=== PATIENT | male | born 1975 | race African-American/Black ===

== ENCOUNTER → 2024-08-02 07:31 | Outpatient (REF) | payer BC, SELFPAY ==
[2024-08-02 08:07] LABS: % Basophils 0.5 % (0-2); % Eosinophils 3.5 % (0-6); % Immature Granulocytes 0.5 % (0-0.5); % Lymphocytes 43.2 % (20.5-51.1); % Monocytes 5.3 % (1.7-9.3); Absolute Basophils 0.1 10^3/uL (0-0.2); Absolute Eosinophils 0.3 10^3/uL (0-0.7); Absolute Immature Granulocytes 0.1 10^3/uL (0-0.05); Absolute Lymphocytes 4.2 10^3/uL (1.2-3.4); Absolute Monocytes 0.5 10^3/uL (0.1-0.6); Absolute Neutrophils 4.5 10^3/uL (1.4-6.5); Hematocrit 43.4 % (39.0-52.0); Hemoglobin 14.8 g/dL (13.0-18.0); Mean Corp Hgb Conc. 34.1 g/dL (33.0-37.0); Mean Platelet Volume 9.2 fL (7.4-10.4); Nucleated Red Blood Cells % 0 % (-); Platelet Count 249 10^3/uL (130-400); Red Blood Cell Count 5.29 10^6/uL (4.70-6.10); Red Cell Dist. Width 13.9 % (11.5-14.5); White Blood Cell Count 9.6 10^3/uL (4.8-10.8)
[2024-08-02 08:41] LABS: ALT (SGPT) 42 U/L (0-50); AST (SGOT) 28 U/L (17-59); Albumin 4.2 g/dl (3.5-5.0); Alkaline Phosphatase 62 U/L (38-126); Blood Urea Nitrogen 9 mg/dl (9-20); Calcium 8.8 mg/dl (8.4-10.2); Carbon Dioxide 24 mmol/L (22-30); Chloride 106 mmol/L (98-107); Glucose 117 mg/dl (70-99); HDL Cholesterol 32 mg/dl; LDL Cholesterol, Calculated 150 mg/dl; Potassium 4.1 mmol/L (3.5-5.1); Sodium 139 mmol/L (135-145); Total Bilirubin 0.6 mg/dl (0.2-1.3); Total Cholesterol 213 mg/dl (50-199); Total Protein 7.5 g/dl (6.3-8.2); Triglyceride 155 mg/dl (10-149); Very Low Density Lipoprotein 31 mg/dl (0-30); eGFR > 60.00
[2024-08-02 11:11] LABS: Glycohemoglobin (HgbA1c) 5.8 % (4.0-5.6)
[2024-08-03 17:46] LABS: CD4 % of Cells Analyzed 15 % (32-64); CD4 Absolute Count 686 cells/uL (430-1800)
[2024-08-03 23:42] LABS: HIV-1 Quan NAAT Interpretation Detected (Not Detected); HIV-1 Quant NAAT (copies/ml) 116 cpy/mL; HIV-1 Quant NAAT (log copy/mL) 2.06 log cpy/mL
[2024-08-04 15:07] LABS: Quantiferon Mitogen minus NIL 9.93 IU/mL; Quantiferon NIL 0.07 IU/mL; Quantiferon Plus TB1 minus NIL 0.05 IU/mL (<=0.34); Quantiferon Plus TB2 minus NIL 0.02 IU/mL (<=0.34); Quantiferon TB Gold Plus Negative (Negative)
[2024-08-04 16:24] LABS: Syphilis/T. pallidum Ab Reflex Positive (Negative)
[2024-08-04 16:58] LABS: RPR, Progressive Reactive (NonReactive)
== END ==
LOC: REG 07:31
PROVIDERS: ATTENDING PHYSICIAN Internal Medicine Infectious Disease
DX: B20 Human immunodeficiency virus [HIV] disease (principal); R73.03 Prediabetes; E78.2 Mixed hyperlipidemia
CPT/HCPCS: 36415; 80053; 80061; 83036; 85025; 86361; 86480; 86592; 86593; 86780; 87491; 87536; 87591

== ENCOUNTER 2024-08-18 13:54 | Outpatient (RCR) | payer BC, SELFPAY ==
[2024-08-18 14:36] VITALS: BP 132/96
[2024-08-18] MEDS: BICILLIN LA 1200000 UNITS IM ×2 (14:43)
== END 2024-08-21 13:53 | disposition home or self-care (01) ==
LOC: OID 13:54
PROVIDERS: ATTENDING PHYSICIAN Internal Medicine Infectious Disease
DX: A53.0 Latent syphilis, unspecified as early or late (principal)
CPT/HCPCS: 96372; J0561

== ENCOUNTER 2024-09-01 13:37 | Outpatient (RCR) | payer BC, SELFPAY ==
[2024-08-25 14:17] VITALS: BP 130/76
[2024-08-25] MEDS: BICILLIN LA 1200000 UNITS IM ×2 (14:29)
[2024-09-01 13:52] VITALS: BP 129/96
[2024-09-01] MEDS: BICILLIN LA 1200000 UNITS IM ×2 (14:28)
== END 2024-09-04 10:39 | disposition home or self-care (01) ==
LOC: OID 13:37
PROVIDERS: ATTENDING PHYSICIAN Internal Medicine Infectious Disease
DX: A53.0 Latent syphilis, unspecified as early or late (principal)
CPT/HCPCS: 96372; J0561

== ENCOUNTER → 2024-11-04 10:46 | Outpatient (REF) | payer BC, SELFPAY ==
[2024-11-04 12:20] LABS: % Basophils 0.5 % (0-2); % Eosinophils 1.9 % (0-6); % Immature Granulocytes 0.5 % (0-0.5); % Lymphocytes 47.9 % (20.5-51.1); % Monocytes 4.6 % (1.7-9.3); % Neutrophils 44.6 % (42.2-75.2); Absolute Eosinophils 0.2 10^3/uL (0-0.7); Absolute Lymphocytes 3.8 10^3/uL (1.2-3.4); Absolute Monocytes 0.4 10^3/uL (0.1-0.6); Absolute Neutrophils 3.5 10^3/uL (1.4-6.5); Hematocrit 41.7 % (39.0-52.0); Mean Corpuscular Hgb 29.6 pg (27.0-31.0); Mean Corpuscular Volume 82.2 fL (80.0-94.0); Mean Platelet Volume 9.3 fL (7.4-10.4); Nucleated Red Blood Cells % 0 % (-); Platelet Count 318 10^3/uL (130-400); Red Blood Cell Count 5.07 10^6/uL (4.70-6.10); Red Cell Dist. Width 13.3 % (11.5-14.5); White Blood Cell Count 7.9 10^3/uL (4.8-10.8)
[2024-11-04 12:44] LABS: ALT (SGPT) 72 U/L (0-50); AST (SGOT) 46 U/L (17-59); Albumin 4.5 g/dl (3.5-5.0); Alkaline Phosphatase 76 U/L (38-126); Blood Urea Nitrogen 13 mg/dl (9-20); Calcium 9.7 mg/dl (8.4-10.2); Carbon Dioxide 23 mmol/L (22-30); Chloride 100 mmol/L (98-107); Glucose 172 mg/dl (70-99); Potassium 4.3 mmol/L (3.5-5.1); Sodium 135 mmol/L (135-145); Total Bilirubin 0.9 mg/dl (0.2-1.3); Total Protein 7.6 g/dl (6.3-8.2); eGFR > 60.00
[2024-11-06 13:26] LABS: Mumps Virus IgG Positive; Rubeola (Measles) IgG Positive
[2024-11-06 17:48] LABS: CD4 % of Cells Analyzed 15 % (32-64); CD4 Absolute Count 655 cells/uL (430-1800)
[2024-11-06 18:56] LABS: Rubella Positive
[2024-11-06 20:11] LABS: CMV IgG Antibody >10.00 U/mL (<=0.70)
== END ==
LOC: REG 10:46
PROVIDERS: ATTENDING PHYSICIAN Internal Medicine Infectious Disease
DX: A53.9 Syphilis, unspecified (principal); B20 Human immunodeficiency virus [HIV] disease
CPT/HCPCS: 36415; 80053; 82955; 85025; 86361; 86644; 86735; 86762; 86765; 86780; 87536

== ENCOUNTER → 2025-01-27 08:40 | Outpatient (REF) | payer BC, SELFPAY ==
[2025-01-27 09:24] LABS: % Basophils 0.6 % (0-2); % Eosinophils 5.9 % (0-6); % Immature Granulocytes 0.2 % (0-0.5); % Lymphocytes 48.9 % (20.5-51.1); % Monocytes 4.1 % (1.7-9.3); % Neutrophils 40.3 % (42.2-75.2); Absolute Basophils 0.1 10^3/uL (0-0.2); Absolute Eosinophils 0.5 10^3/uL (0-0.7); Absolute Lymphocytes 4.1 10^3/uL (1.2-3.4); Absolute Monocytes 0.3 10^3/uL (0.1-0.6); Absolute Neutrophils 3.4 10^3/uL (1.4-6.5); Hematocrit 40.8 % (39.0-52.0); Hemoglobin 14.2 g/dL (13.0-18.0); Mean Corp Hgb Conc. 34.8 g/dL (33.0-37.0); Mean Corpuscular Hgb 28.6 pg (27.0-31.0); Mean Corpuscular Volume 82.1 fL (80.0-94.0); Mean Platelet Volume 9.5 fL (7.4-10.4); Nucleated Red Blood Cells % 0 % (-); Platelet Count 264 10^3/uL (130-400); Red Blood Cell Count 4.97 10^6/uL (4.70-6.10); Red Cell Dist. Width 12.9 % (11.5-14.5); White Blood Cell Count 8.3 10^3/uL (4.8-10.8)
[2025-01-27 09:50] LABS: ALT (SGPT) 51 U/L (0-50); AST (SGOT) 30 U/L (17-59); Albumin 4.1 g/dl (3.5-5.0); Alkaline Phosphatase 78 U/L (38-126); Blood Urea Nitrogen 6 mg/dl (9-20); Calcium 8.9 mg/dl (8.4-10.2); Carbon Dioxide 26 mmol/L (22-30); Chloride 105 mmol/L (98-107); Glucose 167 mg/dl (70-99); HDL Cholesterol 30 mg/dl; LDL Cholesterol, Calculated 79 mg/dl; Sodium 140 mmol/L (135-145); Total Bilirubin 0.6 mg/dl (0.2-1.3); Total Cholesterol 133 mg/dl (50-199); Total Protein 7.2 g/dl (6.3-8.2); Triglyceride 122 mg/dl (10-149); Very Low Density Lipoprotein 24 mg/dl (0-30); eGFR > 60.00
[2025-01-28 15:38] LABS: CD4 % of Cells Analyzed 13 % (32-64); CD4 Absolute Count 623 cells/uL (430-1800)
== END ==
LOC: REG 08:40
PROVIDERS: ATTENDING PHYSICIAN Internal Medicine Infectious Disease
DX: B20 Human immunodeficiency virus [HIV] disease (principal)
CPT/HCPCS: 36415; 80053; 80061; 85025; 86361; 87536